=== PATIENT | female | born 1970 | race Caucasian/White ===

== ENCOUNTER 2018-07-11 07:26 | Emergency (ER) | payer SELFPAY ==
[~2018-07-11] VITALS: Ht 157.5 cm; Wt 62.0 kg
[~2018-07-11 07:26] MED LIST: ACET325T33 PO; ACYC800T5 PO; HYDR-3498 PO; PRED20TA PO
[2018-07-11 07:40] VITALS: BP 118/76; PULSE 66; RESP 16; Ht 157.5 cm; Wt 62.0 kg
[2018-07-11] MEDS ORDERED: IBUP800T48 PO (07:56)
[2018-07-11] MEDS ORDERED: CIPR7.5D RIGHT EAR (07:56)
--- NOTE | 2018-07-11 07:59 | ERD ---
ER Documentation Chief Complaint Chief Complaint pt is bib self with c/o right ear pain for a few days, HPI 47-year-old female presents the emergency room with 5 days of right external ear canal pain. She denies any swimming. The pain is moderate and throbbing and constant. Subjective fevers yesterday. No headaches, difficulty swallowing or history of diabetes. ROS All systems reviewed and are negative except as per history of present illness. Medications Home Meds Active Scripts Ibuprofen* (Motrin*) 800 Mg Tab, 800 MG PO Q6H PRN for PAIN AND OR ELEVATED TEMP, #30 TAB Prov:NALINI ARTHUR MD 07/11/18 Ciprofloxacin Hcl/Dexameth (Ciprodex Otic Suspension) 7.5 Ml Drops.susp, 4 DROP RIGHT EAR BID for 7 Days, EA Prov:NALINI ARTHUR MD 07/11/18 Prednisone* (Prednisone*) 20 Mg Tab, 40 MG PO DAILY for 4 Days, TAB Prov:SHANTEL VÁSQUEZ PA-C 12/06/15 Hydrocodone Bit-Acetaminophen* ([place]*) 5-325 Mg Tab, 1 TAB PO Q6 PRN for PAIN, #20 TAB Prov:SHANTEL VÁSQUEZ PA-C 12/06/15 Acyclovir* (Zovirax*) 800 Mg Tablet, 800 MG PO 5 TIMES DAILY for 7 Days, TAB Prov:SHANTEL VÁSQUEZ PA-C 12/06/15 Acetaminophen* (Tylenol*) 325 Mg Tablet, 2 TAB PO Q8 PRN for PAIN AND OR ELEVATED TEMP, #20 TAB Prov:SHANTEL VÁSQUEZ PA-C 02/17/15 Allergies Allergies: Coded Allergies: No Known Allergy (Unverified , 02/17/15) PMhx/Soc History of Surgery: Yes (ovarian cyst ) Hx Alcohol Use: No Hx Substance Use: No Hx Tobacco Use: No FmHx Family History: No diabetes Physical Exam Vitals Vital Signs Date Temp Pulse Resp B/P (MAP) Pulse Ox O2 O2 Flow FiO2 Time Delivery Rate 07/11/18 99.3 66 16 118/76 98 07:40 (90) Physical Exam General: Well developed, well nourished, no acute distress Head: Normocephalic, atraumatic. Eyes: EOM intact ENT: Moist mucous membranes, right external ear canal has evidence of mild swelling and exudates consistent with purulence, tympanic membrane is partially visualized and intact. Neck: Full ROM, no lymphadenopathy Respiratory: No respiratory distress Cardiovascular: Well perfused distally Abdominal: Nondistended : Deferred MSK: No edema, no unilateral swelling, 5/5 strength Neurologic: Alert and oriented, moving all extremities, normal speech, steady gait Skin: No rash Psych: Normal mood Procedures/MDM The patient's clinical presentation is very consistent with an acute right otitis externa The patient does not exhibit any clinical signs or symptoms concerning for serious bacterial infection or systemic illness. Based on history and clinical exam findings the patient does not appear to have evidence of pneumonia, strep pharyngitis, urinary tract infection, bacteremia, sepsis, or meningitis. For these reasons I do not believe it is necessary to obtain laboratory testing or diagnostic imaging. I believe it would be appropriate for symptom control, and close outpatient primary care follow-up. We discussed follow up with the patient's primary care doctor within 24 to 48 hours as needed. We also discussed return to the emergency room for worsening symptoms or worsening condition. Discharge Medications: Ciprodex otic, Motrin Departure Diagnosis: Primary Impression: Right otitis externa Otitis externa type: swimmer's ear Chronicity: acute Qualified Codes: H60.331 - Swimmer's ear, right ear Condition: Good Patient Instructions: External Ear Infection (Adult) [facility] Usted se najera hecho un examen mdico de control que le indica que no est en mason condicin que requiera tratamiento urgente en el Departamento de Emergencia. Un estudio ms profundo y el tratamiento de zarate condicin pueden esperar sin ningn riesgo hasta que usted sea atendida/o en el consultorio de zarate mdico o mason clnica. Es responsabilidad suya arreglar mason dwayne para el seguimiento del dustin. MANEJO DE CONDICIONES NO URGENTES EN EL FUTURO 1) Si usted tiene un mdico de atencin primaria: Usted debera llamar a zarate mdico de atencin primaria antes de venir al departamento de emergencia. Despus de las horas de consultorio, zarate doctor o zarate asociado/a est disponible por telfono. El mdico o enfermero de tiffanie en el servicio telefnico puede asesorarle por brianna medio para atender el problema, o dustin contrario se puede programar mason dwayne. 2) Si usted no tiene un mdico de atencin primaria: Llame al mdico o clnica de referencia que aparece abajo niko las horas de consultorio para hacer mason dwayne para que le vean. CLINICAS: [facility] [phone] [facility] [phone] [facility] [phone] [address] [facility] [place] [id number] [phone] [facility] [place] [id number] [phone] [facility]. [phone] [address] [facility]. [facility] () Usted se najera hecho un examen mdico de control que le indica que no est en mason condicin que requiera tratamiento urgente en el Departamento de Emergencia. Un estudio ms profundo y el tratamiento de zarate condicin pueden esperar sin ningn riesgo hasta que usted sea atendida/o en el consultorio de zarate mdico o mason clnica. Es responsabilidad suya arreglar mason dwayne para el seguimiento del dustin. MANEJO DE CONDICIONES NO URGENTES EN EL FUTURO 1) Si usted tiene un mdico de atencin primaria: Usted debera llamar a zarate mdico de atencin primaria antes de venir al departamento de emergencia. Despus de las horas de consultorio, zarate doctor o zarate asociado/a est disponible por telfono. El mdico o enfermero de tiffanie en el servicio telefnico puede asesorarle por brianna medio para atender el problema, o dustin contrario se puede programar mason dwayne. 2) Si usted no tiene un mdico de atencin primaria: Llame al mdico o condado institucions de referencia que aparece abajo niko las horas de consultorio para hacer mason dwayne para que le vean. SI USTED NO PUEDE PAGAR PARA AMBER UN MEDICO puede ir a: [facility] [address] [place] [address] [facility] [address] [place] [address] [facility] [address] [place] [address] [facility] [address] [place], [place] [id number] Additional Instructions: Llame al doctor nombrado abajo (Referral Sources) MAANA y ernie mason DWAYNE PARA DENTRO DE [place] SEMANA. Dgale a la secretaria que nosotros le instruimos hacer esta dwayne.Avise o llame si zarate condicin se empeora antes de la dwayne. NALINI ARTHUR MD Jul 11, 2018 07:59
== END 2018-07-11 08:08 | disposition home or self-care (01) ==
LOC: FTE 07:26
DX: H60.331 Swimmer's ear, right ear (principal)
CPT/HCPCS: 99283